=== PATIENT | female | born 1995 | race African-American/Black ===

== ENCOUNTER 2017-10-03 09:43 | Emergency (ER) | payer SELFPAY ==
[2017-10-03 10:43] LABS: Bilirubin Negative (Negative); Blood, Urine Negative (Negative); Clarity CLEAR (Clear); Glucose, Urine (Dipstick) Negative (Negative); Leukocyte Negative (Negative); Nitrite Negative (Negative); Protein, Urine (Dipstick) Negative (Neg-Trace); pH, Urine 7.5 (5.0-9.0)
[2017-10-03 10:44] LABS: Pregnancy Test - Urine (BHCG) POSITIVE (Negative); Pregu Control Background? CLEAR/WHITE (CLR/WHITE); Pregu Control Bar Appear? YES (CONTROL BAR)
[2017-10-03 11:14] LABS: #Basophils 0.1 thou/uL (0.0-0.2); #Eosinphils 0.1 thou/uL (0.0-0.7); #Lymphocytes 2.1 thou/uL (1.20-3.40); #Monocytes 0.5 thou/uL (0.11-0.59); #Neutrophils 3.2 thou/uL (1.40-6.50); %Basophils 1.4 % (0.0-1.0); %Lymphocytes 34.5 % (21.0-51.0); %Monocytes 8.8 % (0.0-10.0); %Neutrophils 54.3 % (42.0-75.0); Hemoglobin 13.3 g/dL (12.0-16.0); Mean Corpuscular HGB CONC 32.2 g/dL (32.0-36.0); Mean Corpuscular Hemoglobin 31.3 pg (27.0-31.0); Platelet Count 280 thou/uL (130-400); RBC Distribution Width 12.1 % (11.5-14.5); Red Blood Cell (RBC) Count 4.27 mill/uL (4.20-5.40); White Blood Cell (WBC) Count 5.9 thou/uL (4.8-10.8)
[2017-10-03 11:35] LABS: ALT (SGPT) 21 U/L (8-55); AST (SGOT) 20 U/L (5-34); Alkaline Phosphatase 78 U/L (40-150); Anion Gap 12 mmol/L (10-20); BUN (Urea Nitrogen) 6 mg/dL (7.0-18.7); Bilirubin, Total 0.5 mg/dL (0.2-1.2); Calc. Creatinine Clearance 0 mL/min (70-130); Calcium 9.5 mg/dL (7.8-10.44); Carbon Dioxide 22 mmol/L (22-29); Chloride 106 mmol/L (98-107); Estimated GFR-MDRD Greater than 90; Globulin 3.5 g/dL (2.4-3.5); Glucose 92 mg/dL (70-105); Potassium 3.5 mmol/L (3.5-5.1); Protein, Total 7.5 g/dL (6.0-8.3); Sodium 136 mmol/L (136-145)
== END 2017-10-03 12:15 | disposition home or self-care (01) ==
LOC: ERS 09:43
DX: O99.89 Other specified diseases and conditions complicating pregnancy, childbirth and the puerperium (principal); R10.31 Right lower quadrant pain; Z3A.01 Less than 8 weeks gestation of pregnancy
CPT/HCPCS: 36415; 80053; 81003; 81025; 84702; 85025; 99284

== ENCOUNTER 2018-03-12 11:56 | Day surgery (SDC) | payer SELFPAY ==
[2018-03-12 12:34] VITALS: BMI 39.0
[2018-03-12 12:36] VITALS: BP 125/64; TEMP 99.4
[2018-03-12 14:40] LABS: Bilirubin Negative (Negative); Blood, Urine Negative (Negative); Clarity CLEAR (Clear); Glucose, Urine (Dipstick) Negative (Negative); Leukocyte Negative (Negative); Nitrite Negative (Negative); Protein, Urine (Dipstick) Negative (Neg-Trace); Specific Gravity, Urine 1.006 (1.002-1.036)
[2018-03-12 14:44] LABS: Bacteria/HPF None Seen HPF (None Seen); Hyaline Casts/LPF 0-3 HYALINE CAST LPF (0-3 Hyaline); Pathc Cast-AUWi Flag 0.14 (0-2.49); RBC/HPF 0-3 HPF (0-3); Squamous Epithelial 0-3 HPF (0-3); WBC/HPF None Seen HPF (0-3)
--- NOTE | 2018-03-12 15:59 | PRG ---
DATE OF SERVICE: 03/12/2018 PRIMARY FEEDER CATCHER: Dr. Ynes Yung. CHIEF COMPLAINT: Abdominal pain. HISTORY OF PRESENT ILLNESS: The patient is a female with an intrauterine at 27 weeks and 5 days, who is followed by Dr. Yung. She presents to Labor and Delivery by EMS from work fo r acute onset lower abdominal pain that was sharp, constant, and radiating to her groin while standin g at work. She reports that after she sat down after a few minutes, it did improve, but it is still present. She reports that the pain seems to be worse with movement at times and at times it is just constant. Pain currently is much improved compared to the episode at work. In addition, she said th at she had a tight hard pain of the abdomen that has not returned. She denies any leakage of fluid o r vaginal bleeding. She reports good movement. She denies fever or dysuria. She has some urg ency and frequency. Denies any vaginal discharge, has had no intercourse in the last 24 hours. The patient denies any other complications with this thus far. PAST MEDICAL HISTORY: Negative. PAST SURGICAL HISTORY: Negative. SOCIAL HISTORY: Denies drug, alcohol, or tobacco use. CURRENT MEDICATIONS: vitamins. ALLERGIES: No known drug allergies. OB LABS: Unavailable at the time of dictation. REVIEW OF SYSTEMS: Per HPI. Negative review of systems for general. Ears, nose, and throat, denies any problems. Cardiovascular: No problems. Respiratory System: No problems. Gastrointestinal Sy stem: No problems. Musculoskeletal System: No problems. Neurologic System: No problems. Hematol ogic: No problems. Pertinent positives are in the HPI. PHYSICAL EXAMINATION: VITAL SIGNS: Blood pressure is 125/64, heart rate of 84, respiratory rate 18, temperature 99.4. GENERAL: She appears to be in no acute distress. She is alert and oriented, cooperative and pleasan t to interact with. HEENT: Head is normocephalic, atraumatic. CHEST: Clear to auscultation bilaterally. CARDIOVASCULAR: Heart has a regular rate and rhythm. ABDOMEN: Soft. She has some tenderness to palpation in the right lower abdomen, worsened by deviati on of the uterus. She has some suprapubic tenderness. She has no CVA tenderness to palpation. EXTREMITIES: Nontender, nonedematous. PELVIC: Normal reflexes. CERVICAL EXAM: She is closed, thick, and high. She does have some point tenderness along the right vaginal wall and labia. heart tracing performed for abdominal pain in , performed over the course of 2 hours, baseline is noted to be in the 140s with moderate long-term variability with 10/10 accelerations, no decelerations. Tocometer is showing some irritability, and that also is felt by the patient. UA was performed and is negative for nitrites, leukocyte esterase, bacteria, or blood. ASSESSMENT AND PLAN: The patient is a 22-year-old female with an intrauterine at 27 weeks that had acute onset abdominal pain that has since much improved spontaneously. This is likely related to a musculoskeletal condition such as ligament pain. The patient has no evidence of labor. Fetus has a category 1 tracing. The patient is being discharged to home with reassurance. Has bee n given a release from work today to go home and rest and can return back tomorrow. She has been cou nseled on Tylenol, 1 gram of Tylenol 3 times a day with a warm heat may assist in her recovery. This is a patient of Dr. Ynes Yung's, whose next appointment will be in the next week to a week and a half, which she has been counseled to keep.
== END 2018-03-12 15:10 | disposition home or self-care (01) ==
LOC: L&D/OP 11:56
PROVIDERS: ATTEND Family Medicine
DX: O99.89 Other specified diseases and conditions complicating pregnancy, childbirth and the puerperium (principal); R10.30 Lower abdominal pain, unspecified; Z3A.27 27 weeks gestation of pregnancy
CPT/HCPCS: 81001

== ENCOUNTER 2018-05-21 19:23 | Day surgery (SDC) | payer SELFPAY ==
[2018-05-21 19:50] VITALS: BP 116/73; TEMP 98.8; BMI 38.7
--- NOTE | 2018-05-22 08:25 | PDOC.LDHP ---
Labor and Delivery H&P Chief complaint: contractions HPI: 22 y/o at 38w2d, patient of Dr. Menon, presents with regular contractions. Denies VB, LOF, or decreased FM. ROS neg for HEENT, CV, pulm, GI, , neuro, psych, skin, musculoskeletal, or constitutional symptoms other than mentioned above. OB History Details: 2 prior EAB 1 prior term Current complications: none Past Medical History: None Current medications: pre- vitamins Previous surgical history: none Allergies/Adverse Reactions: Allergies Allergy/AdvReac Type Severity Reaction Status Date / Time No Known Allergies Allergy Verified 05/21/18 19:47 Social history: none - Physical Exam Vital signs reviewed and normal: yes General: NAD, resting Lungs: nonlabored breathing Abdomen: gravid Extremeties: no edema FHT: category 1 (135, mod variability, + accels, no decels) [place] contractions every: 6-8 mins - Vaginal Exam cm dilated: 2 Effacement: 50% Station: -3 - Assessment 22 y/o at 38w2d with no e/o active labor. status reassuring with reactive NST. - Plan -: D/c home with precautions. Advised to keep all appointments.
== END 2018-05-21 20:40 | disposition home or self-care (01) ==
LOC: L&D/OP 19:23
PROVIDERS: ATTEND Family Medicine
DX: O47.1 False labor at or after 37 completed weeks of gestation (principal); Z3A.38 38 weeks gestation of pregnancy
CPT/HCPCS: 99283

== ENCOUNTER 2018-06-01 20:48 | Inpatient (IN) | payer OTHER ==
[2018-06-01 21:20] VITALS: BMI 39.7
[2018-06-01] MEDS ORDERED: Ondansetron HCl/PF 4 MG/2 ML Vial IVP PRN (21:29)
[2018-06-01] MEDS ORDERED: Butorphanol Tartrate 1 MG/ML VIAL SLOW IVP PRN (21:29)
[2018-06-01] MEDS ORDERED: HYDROcodone/Acetaminophen 5/325 mg Tablet PO PRN (21:29)
[2018-06-01] MEDS ORDERED: Misoprostol 200 MCG TAB PR PRN (21:29)
[2018-06-01] MEDS ORDERED: Carboprost 250 MCG/ML AMP IM PRN (21:29)
[2018-06-01] MEDS ORDERED: Lidocaine 1% (PF) 30 ML VIAL SC PRN (21:29)
[2018-06-01] MEDS ORDERED: Methylergonovine 0.2 MG/ML VIAL IM PRN (21:29)
[2018-06-01] MEDS ORDERED: Diphenoxylate HCl/Atropine Tablet PO PRN (21:29)
[2018-06-01] MEDS ORDERED: NS w/ Oxytocin 10 units 500 ML IV SCH ×2 (21:30)
[2018-06-01] MEDS: Lactated Ringer's 1,000 ML IV SCH (22:00)
[2018-06-01 22:21] LABS: Hemoglobin 11.2 g/dL (12.0-16.0); Mean Corpuscular HGB CONC 34.2 g/dL (32.0-36.0); Mean Corpuscular Hemoglobin 29.6 pg (27.0-31.0); Mean Corpuscular Volume 86.6 fL (78.0-98.0); Mean Platelet Volume 8.9 fL (7.4-10.4); Platelet Count 249 thou/uL (130-400); RBC Distribution Width 12.6 % (11.5-14.5); Red Blood Cell (RBC) Count 3.79 mill/uL (4.20-5.40); White Blood Cell (WBC) Count 6.6 thou/uL (4.8-10.8)
[2018-06-01 23:15] LABS: Syphilis Antibody Nonreactive (Nonreactive); Syphilis Antibody Index 0.03 S/CO (<1.00 Non-Reactive)
[2018-06-02 00:20] LABS: Hep B Surf Ag Non-Reactive S/CO (NonReactive)
[2018-06-02] MEDS: Lactated Ringer's 1,000 ML IV SCH ×2 (06:09→08:56)
[2018-06-02] MEDS ORDERED: DISCONTINUE ALL PREVIOUS NARCOTICS FS SCH (07:15)
[2018-06-02] MEDS ORDERED: Bupivacaine 0.5% 20 ML, fentaNYL Citrate/PF 400 MCG in Sodium Chloride 0.9% 72 ML EPIDURAL SCH (07:15)
[2018-06-02] MEDS ORDERED: Eucerin (Mineral Oil/Petrolatum,White) 30 gm Jar TOP PRN (08:56)
[2018-06-02] MEDS ORDERED: Lactated Ringer's 500 ML IV PRN (08:56)
[2018-06-02] MEDS ORDERED: ePHEDrine/0.9% NaCl/PF SYRINGE 50 mg/10 ml SLOW IVP PRN (08:56)
[2018-06-02] MEDS ORDERED: Naloxone HCl 0.4 mg/ml Vial IVP PRN ×2 (08:56)
[2018-06-02] MEDS ORDERED: Ondansetron HCl/PF 4 MG/2 ML Vial IVP PRN ×2 (08:56→17:04)
[2018-06-02] MEDS ORDERED: Communication Order-Pharmacy FS SCH (09:00)
[2018-06-02] MEDS ORDERED: Bupivacaine/Epinephrine 0.25% 30 ML VIAL ONE (09:00)
[2018-06-02] MEDS ORDERED: fentaNYL Citrate/PF 400 MCG, Bupivacaine 0.5% 20 ML in Sodium Chloride 0.9% 72 ML EPIDURAL SCH (09:00)
[2018-06-02] MEDS ORDERED: Bupivacaine HCl 0.5%/Epinephrine 1:200,000/PF 30 ml Vial ONE (09:00)
[2018-06-02] MEDS ORDERED: Fentanyl 100 MCG/2 ML VIAL ONE (10:03)
[2018-06-02] MEDS: NS / Oxytocin 40 units/1000ml 1,000 ML IV PRN ×2 (15:02→15:15)
[2018-06-02] MEDS ORDERED: Lanolin Ointment 7 GM TUBE TOP PRN (17:04)
[2018-06-02] MEDS ORDERED: Milk Of Magnesia 30 ML UDCUP PO PRN (17:04)
[2018-06-02] MEDS ORDERED: Bisacodyl 10 MG SUPP PR PRN (17:04)
[2018-06-02] MEDS ORDERED: HYDROcodone/Acetaminophen 5/325 mg Tablet PO PRN ×2 (17:04)
[2018-06-02] MEDS ORDERED: NS / Oxytocin 40 units/1000ml 1,000 ML IV SCH (17:04)
[2018-06-02] MEDS ORDERED: diphenhydrAMINE 25 MG CAP PO PRN (17:04)
[2018-06-02] MEDS: Ferrous Sulfate 325 MG TAB PO SCH (18:06)
[2018-06-02] MEDS: Docusate Calcium (SURFAK) 240 MG CAP PO SCH (21:08)
[2018-06-02] MEDS: Ibuprofen 800 MG TAB PO SCH (21:08)
[2018-06-03] MEDS: Ibuprofen 800 MG TAB PO SCH ×2 (05:20→13:52)
[2018-06-03 06:31] LABS: Hemoglobin 10.3 g/dL (12.0-16.0); Mean Corpuscular HGB CONC 33.2 g/dL (32.0-36.0); Mean Corpuscular Hemoglobin 29.1 pg (27.0-31.0); Mean Corpuscular Volume 87.6 fL (78.0-98.0); Mean Platelet Volume 9.3 fL (7.4-10.4); Platelet Count 210 thou/uL (130-400); RBC Distribution Width 12.7 % (11.5-14.5); Red Blood Cell (RBC) Count 3.54 mill/uL (4.20-5.40)
[2018-06-03] MEDS ORDERED: Prenatal Vitamin 1 TAB PO SCH (09:00)
[2018-06-03] MEDS: Docusate Calcium (SURFAK) 240 MG CAP PO SCH (09:28)
[2018-06-03] MEDS: Ferrous Sulfate 325 MG TAB PO SCH (09:29)
[2018-06-03 11:30] VITALS: BP 124/73; TEMP 97.9
== END 2018-06-03 16:48 | disposition home or self-care (01) | DRG 775 ==
LOC: L&D 20:48 → 3SW 06-02 17:06
PROVIDERS: ADMIT Family Medicine; ATTEND Family Medicine
PROC: 10E0XZZ Delivery of Products of Conception, External Approach (ICD-10-PCS; principal; 2018-06-02)
PROC: 10907ZC Drainage of Amniotic Fluid, Therapeutic from Products of Conception, Via Natural or Artificial Opening (ICD-10-PCS; 2018-06-02)
PROC: 3E033VJ Introduction of Other Hormone into Peripheral Vein, Percutaneous Approach (ICD-10-PCS; 2018-06-02)
DX: O80 Encounter for full-term uncomplicated delivery (principal); Z37.0 Single live birth; Z3A.39 39 weeks gestation of pregnancy
CPT/HCPCS: 36415; 51702; 85027; 86780; 86850; 86900; 86901; 87340; J0670; J3010

== ENCOUNTER 2020-02-28 19:18 | Day surgery (SDC) | payer OTHER ==
[2020-02-28 19:32] VITALS: BMI 39.6
[2020-02-28] MEDS ORDERED: hydrALAZINE 20 MG/ML VIAL SLOW IVP PRN (20:02)
[2020-02-28] MEDS ORDERED: Promethazine HCl 25 MG in Sodium Chloride 0.9% 50 ML IVPB SCH (22:00)
--- NOTE | 2020-02-29 01:03 | PRG ---
DATE OF SERVICE: 02/28/2020 PRIMARY OB: Dr. Jose Menon. CHIEF COMPLAINT: Acute abdominal pain. HISTORY OF PRESENT ILLNESS: The patient is a 24-year-old, G5, P2 female with an intrauterine at approximately 26 weeks' gestation, who presented to outside ER with 3-day history of worsening abdominal pain. The patient was evaluated there and transferred here for imaging and further monitoring. Upon arrival, the patient reports that this pain has been focal and has been worsening with time. It is very intense and exquisitely tender to touch. She reports that it is above the umbilicus in the mid region of her abdomen. She denies any other tenderness anywhere else. She denies uterine contractions. She denies vaginal bleeding or leakage of fluid. She denies any changes in this pain with eating. She denies nausea, vomiting, diarrhea, or constipation. She denies fever. The patient denies cough, chest pain, shortness of breath, any new rashes, hip problems, knee problems, muscle weakness, urinary urgency or frequency. PAST MEDICAL HISTORY: Negative. PAST SURGICAL HISTORY: Negative. ALLERGIES: NO KNOWN DRUG ALLERGIES. MEDICATIONS: vitamins. OB LABS: Unavailable at time of dictation. REVIEW OF SYSTEMS: Per HPI. PHYSICAL EXAMINATION: VITAL SIGNS: Blood pressure 110/62, heart rate of 70, saturating 99% on room air, and respiratory rate is 18. GENERAL: She appears to be in no acute distress. She is alert, oriented, cooperative, and pleasant to interact with. HEAD: Normocephalic and atraumatic. LUNGS: Clear to auscultation bilaterally. HEART: Has regular rate and rhythm. ABDOMEN: Exquisitely tender, approximately 5 cm above the umbilicus. She has no tenderness anywhere else. This focal tenderness is associated with a soft tissue mass that is felt beneath the skin. The patient denies any abdominal surgeries or any history of known hernias. She was very active growing up and was in all sports and was heavily physically active. heart tracing shows the fetus with a baseline in the 150s with moderate long-term variability appropriate for 26-week gestation. Tocometer is absent of contractions. Bedside ultrasound confirms this soft tissue mass, difficult to identify the entry point in the fascia, but it is believed to be seen in a small defect. Final read is not available at this time. After curbside consultation with General Surgery, decision was made to medicate the patient and attempt to reduce this physically. The patient was given a total of 100 mg of Demerol and 25 mg of Phenergan. The patient was placed on continuous pulse ox and found to remain good saturations at 98% to 100% with sufficient pain relief as 50 mg itself was not working. The abdomen was then elevated and this mass was compressed. At the end of the attempt to reduce this soft tissue mass, by palpation, it feels like most of it is gone. There is a small amount that feels to still be present, which I have not been able to reduce through. At the conclusion of this procedure, which the patient tolerated fairly well, she reports that things feel much better and even 45 minutes after completion of this process. A rolled washcloth and bands have been used to put pressure on the area to continue to help encourage further reduction of what is believed to have been incarcerated omentum. The patient is comfortable going home now and will follow up with her primary OB as scheduled. Should this return, General Surgery's recommendations would be to either CT her to confirm no involvement of the bowel if we are concerned about that prior to General Surgery consultation or manage with pain medication. Fetus has a category I tracing and appropriate for gestational age. Job ID: [id number] [facility]
--- NOTE | 2020-02-29 07:57 | ULT ---
ULTRASOUND ABDOMEN LIMITED: HISTORY: Painful lump at the abdomen. COMPARISON: None. FINDINGS: Real-time, solis scale, and color evaluation of the superficial soft tissues was performed. There appears to be a fat-containing umbilical hernia, although this evaluation is limited without be ing in the room during the exam. There is a small neck 1.2 cm in size. IMPRESSION: Findings of a fat-containing umbilical hernia. No definite bowel within this hernia, although evalua tion is limited without being there in real time during the exam. POS: HOME
== END 2020-02-29 01:38 | disposition home or self-care (01) ==
LOC: L&D/OP 19:18
PROVIDERS: ATTEND Family Medicine
DX: O99.612 Diseases of the digestive system complicating pregnancy, second trimester (principal); K42.9 Umbilical hernia without obstruction or gangrene; Z3A.26 26 weeks gestation of pregnancy
CPT/HCPCS: 76705; J2175; J2550

== ENCOUNTER 2020-05-30 09:18 | Inpatient (IN) | payer OTHER ==
[~2020-05-30 09:18] MED LIST: Bupivacaine HCl 0.5%/Epinephrine 1:200,000/PF 30 ml Vial ONE; Lidocaine 2% MPF 10 ML AMP (For Epidural Use) ONE
[2020-05-30] MEDS ORDERED: Carboprost 250 MCG/ML AMP IM PRN (09:59)
[2020-05-30] MEDS ORDERED: Ondansetron PF 4 MG/2 ML Vial IVP PRN ×3 (09:59→21:16)
[2020-05-30] MEDS ORDERED: Butorphanol Tartrate 1 MG/ML VIAL SLOW IVP PRN (09:59)
[2020-05-30] MEDS ORDERED: Lidocaine 1% (PF) 30 ML VIAL SC PRN (09:59)
[2020-05-30] MEDS ORDERED: NS / Oxytocin 40 units/1000ml 1,000 ML IV PRN (09:59)
[2020-05-30] MEDS ORDERED: Ibuprofen 800 MG TAB PO PRN (09:59)
[2020-05-30] MEDS ORDERED: Diphenoxylate HCl/Atropine Tablet PO PRN (09:59)
[2020-05-30] MEDS ORDERED: Methylergonovine 0.2 MG/ML VIAL IM PRN (09:59)
[2020-05-30] MEDS ORDERED: HYDROcodone/Acetaminophen 5/325 mg Tablet PO PRN ×3 (09:59→21:16)
[2020-05-30] MEDS ORDERED: Promethazine HCl 25 MG/ML VIAL IM PRN ×2 (09:59→12:31)
[2020-05-30] MEDS ORDERED: Misoprostol 200 MCG TAB PR PRN (09:59)
[2020-05-30] MEDS ORDERED: hydrALAZINE 20 MG/ML VIAL SLOW IVP PRN ×2 (09:59→17:27)
[2020-05-30] MEDS ORDERED: NS w/ Oxytocin 10 units 500 ML IV SCH ×2 (10:00)
[2020-05-30] MEDS ORDERED: Penicillin G Potassium 5 MILL.UNITS in Sodium Chloride 0.9% 100 ML IVPB SCH (10:00)
[2020-05-30] MEDS: Lactated Ringer's 1,000 ML IV SCH (10:20)
[2020-05-30 10:48] LABS: Hemoglobin 11.3 g/dL (12.0-16.0); Mean Corpuscular HGB CONC 32.5 g/dL (32.0-36.0); Mean Corpuscular Hemoglobin 28.9 pg (27.0-31.0); Mean Corpuscular Volume 88.9 fL (78.0-98.0); Mean Platelet Volume 10.5 fL (7.4-10.4); Platelet Count 230 thou/uL (130-400); RBC Distribution Width 13.5 % (11.5-14.5); Red Blood Cell (RBC) Count 3.92 mill/uL (4.20-5.40); White Blood Cell (WBC) Count 6.4 thou/uL (4.8-10.8)
[2020-05-30 11:01] VITALS: BMI 40.0
[2020-05-30 11:37] LABS: Syphilis Antibody Nonreactive (Nonreactive); Syphilis Antibody Index 0.03 S/CO (<1.00 Non-Reactive)
[2020-05-30] MEDS ORDERED: Fentanyl 4 mcg/Bup 0.1% Cadd 100 ML ONE (12:02)
[2020-05-30] MEDS ORDERED: EPHEDRINE 25 MG/5 ML SYRINGE SLOW IVP PRN (12:31)
[2020-05-30] MEDS ORDERED: Lactated Ringer's 500 ML IV PRN (12:31)
[2020-05-30] MEDS ORDERED: Naloxone HCl 0.4 mg/ml Vial IVP PRN ×2 (12:31)
[2020-05-30] MEDS ORDERED: Acetaminophen 325 MG TAB PO PRN (12:31)
[2020-05-30] MEDS ORDERED: diphenhydrAMINE 50 MG/ML VIAL IVP PRN (12:31)
[2020-05-30] MEDS ORDERED: Communication Order-Pharmacy FS SCH (12:45)
[2020-05-30] MEDS ORDERED: Fentanyl 4 mcg/Bupivacaine 0.1% Cassette 100 ML EPIDURAL SCH (12:45)
[2020-05-30] MEDS: Penicillin G 2.5 MILL.units 2.5 MILL.UNITS in Premix Bag 1 BAG IVPB SCH (15:39)
[2020-05-30 15:58] LABS: HBSAg Index 0.16 S/CO (0-0.99); Hep B Surf Ag Non-Reactive S/CO (NonReactive)
[2020-05-30] MEDS ORDERED: Lidocaine 2% 10 ML INJ ONE (16:30)
[2020-05-30] MEDS ORDERED: cloNIDine 0.1 MG TAB PO PRN (17:27)
[2020-05-30 18:29] LABS: SARS-CoV-2 MS2 Positive; SARS-CoV-2 N Gene Negative; SARS-CoV-2 S Gene Negative; SARS-CoV-2 by NAA Not Detected (NotDetected); SARS-CoV-2 orf1ab Negative
[2020-05-30] MEDS ORDERED: Bisacodyl 10 MG SUPP PR PRN (21:16)
[2020-05-30] MEDS ORDERED: Benzocaine-Menthol 82.5 ML CAN TOP PRN (21:16)
[2020-05-30] MEDS ORDERED: NS / Oxytocin 40 units/1000ml 1,000 ML IV SCH (21:16)
[2020-05-30] MEDS ORDERED: Milk Of Magnesia 30 ML UDCUP PO PRN (21:16)
[2020-05-31] MEDS: Lactated Ringer's 1,000 ML IV SCH (00:35)
[2020-05-31] MEDS: Ibuprofen 800 MG TAB PO SCH ×3 (00:35→13:34)
[2020-05-31] MEDS: Penicillin G 2.5 MILL.units 2.5 MILL.UNITS in Premix Bag 1 BAG IVPB SCH (00:35)
[2020-05-31] MEDS: Docusate Calcium (SURFAK) 240 MG CAP PO SCH ×2 (00:35→09:37)
[2020-05-31] MEDS ORDERED: Adacel (T-DAP) 0.5 ML SYRINGE IM ONE (09:00)
[2020-05-31] MEDS ORDERED: Prenatal Vitamin 1 TAB PO SCH (09:00)
[2020-05-31] MEDS: Ferrous Sulfate 325 MG TAB PO SCH ×2 (09:38→17:02)
[2020-05-31 12:04] VITALS: BP 121/67; TEMP 98.7
== END 2020-05-31 19:34 | disposition home or self-care (01) | DRG 807 ==
LOC: L&D 09:18 → 3SW 22:01
PROVIDERS: ADMIT Family Medicine; ATTEND Family Medicine
PROC: 10E0XZZ Delivery of Products of Conception, External Approach (ICD-10-PCS; principal; 2020-05-30)
PROC: 10907ZC Drainage of Amniotic Fluid, Therapeutic from Products of Conception, Via Natural or Artificial Opening (ICD-10-PCS; 2020-05-30)
PROC: 3E033VJ Introduction of Other Hormone into Peripheral Vein, Percutaneous Approach (ICD-10-PCS; 2020-05-30)
PROC: 0UQMXZZ Repair Vulva, External Approach (ICD-10-PCS; 2020-05-30)
DX: O40.3XX0 Polyhydramnios, third trimester, not applicable or unspecified (principal); Z37.0 Single live birth; Z20.828 Contact with and (suspected) exposure to other viral communicable diseases; O99.824 Streptococcus B carrier state complicating childbirth; Z3A.39 39 weeks gestation of pregnancy; O71.82 Other specified trauma to perineum and vulva
CPT/HCPCS: 36415; 51702; 85027; 86780; 86850; 86900; 86901; 87340; 87635; 88307; J0360; J0670; J2001; J2540; J2590; J3490; U0003